=== PATIENT | female | born 1940 | race Caucasian/White ===

== ENCOUNTER → 2021-02-28 | Outpatient (CLI) | payer MEDICARE, OTHER | LOC: HEART 5 01-09 08:30 | DX: I25.10 Atherosclerotic heart disease of native coronary artery without angina pectoris (principal); I34.0 Nonrheumatic mitral (valve) insufficiency; I07.1 Rheumatic tricuspid insufficiency | CPT/HCPCS: 93306 ==

== ENCOUNTER 2022-04-11 15:48 | Emergency (ER) | payer MEDICARE, MEDICAID ==
[2022-04-11 18:34] LABS: RED BLOOD COUNT 5.37 M/UL (4.00-5.10); WHITE BLOOD COUNT 14.4 K/UL (4.5-11.0)
== END 2022-04-12 00:42 | disposition short-term general hospital (02) ==
LOC: ER1 15:48
PROVIDERS: Emergency Medicine
DX: G93.89 Other specified disorders of brain (principal); J96.90 Respiratory failure, unspecified, unspecified whether with hypoxia or hypercapnia; I48.91 Unspecified atrial fibrillation; I11.9 Hypertensive heart disease without heart failure; Z20.822 Contact with and (suspected) exposure to COVID-19; E78.5 Hyperlipidemia, unspecified; Z95.1 Presence of aortocoronary bypass graft
CPT/HCPCS: 70450; 71045; 80053; 81001; 82550; 82553; 84484; 85025; 87040; 93005; 96374; 96375; 96376; 99285; J1100; J1953; U0002